=== PATIENT | male | born 1965 | race African-American/Black ===

== ENCOUNTER 2016-07-03 21:38 | Emergency (ER) | payer SELFPAY ==
[~2016-07-03] VITALS: Ht 188 cm; Wt 87.0 kg
[2016-07-04] MEDS ORDERED: BACITRACIN ZINC OINT UDPKT TOP ONE
[2016-07-04] MEDS ORDERED: TETANUS, DIPHTHERIA, PERTUSSIS VAC/PF 0.5ML (>7YR OLD) IM ONE
[2016-07-04 00:49] VITALS: BP 148/90
== END 2016-07-04 00:52 | disposition home or self-care (01) ==
LOC: ER 21:38
DX: S81.851A Open bite, right lower leg, initial encounter (principal); F12.10 Cannabis abuse, uncomplicated; W54.0XXA Bitten by dog, initial encounter; Y93.89 Activity, other specified; Y92.89 Other specified places as the place of occurrence of the external cause; Y99.8 Other external cause status
CPT/HCPCS: 90471; 90715; 99283